=== PATIENT | male | born 1980 | race Caucasian/White ===

== ENCOUNTER → 2021-12-17 10:14 | Outpatient (BNVA) | payer OTHER, SELFPAY | PROVIDERS: PCP Family Medicine; Visit Provider Urology | DX: Z13.89 Encounter for screening for other disorder (principal) ==

== ENCOUNTER 2021-12-18 15:10 | Day surgery (SDC) | payer OTHER, MEDICAID, SELFPAY ==
[2021-12-18] VITALS (10 sets, daily range): BP systolic 136–165; BP diastolic 88–103; PULSE 86–110; RESP 16–20; TEMP 36.1–36.8; O2SAT 94–100; BMI 30.7
--- NOTE | 2021-12-18 15:36 | HO.ANESPROP2 ---
HPI - Anesthesia Eval Consult details Narrative: 41 M for Orchiectomy Current Smoker PMFSH Active Problems Active Problems: All Active Problems (Updated 12/17/21 @ 12:21 by Nahid Davidson MD) Testicular cancer (Acute) Past Medical History Medical History (Updated 12/18/21 @ 15:42 by Khushi Irvin RN) Asthma Deviated septum H/O prematurity Insomnia Other cyst of bone, left forearm Wrist fracture, left Family History Family history of problems with anesthesia: No Surgical History Surgical History (Updated 12/18/21 @ 16:01 by Khushi Irvin RN) Hx of adenoidectomy Hx of tonsillectomy History of Problems with Anesthesia: No Social History Social History Patient Tobacco Use Status: Current everyday Tobacco user Tobacco use type: Cigarette Cigarette Packs Per Day: 1 Cigarettes Per Day: 20.0 Smoked in Last 30 Days: Yes Use of substances other than those prescribed or required for medical reasons: Yes Are you DNR?: No Advance Directives: No Advance Directives Information Provided: Yes Recently lost weight without trying: No Nutrition Risks: No Nutritional Risk Meds Allergies Allergy/AdvReac Type Severity Reaction Status Date / Time codeine AdvReac Nausea and Verified 12/18/21 15:38 Vomiting Home Medications Medication Instructions Recorded Confirmed Last Taken Type oxycodone 5 mg tablet 5 mg PO tab 12/17/21 Unknown History Exam Exam Date and Time: December 18, 2021 1536 Height,Weight and Vital Signs: Height 5 ft 6 in Weight 86.183 kg Last Vital Signs Temp 98.3 F 12/18/21 15:22 Pulse 94 12/18/21 15:22 Resp 16 12/18/21 15:22 BP 136/88 12/18/21 15:22 Pulse Ox 98 12/18/21 15:22 Airway Mallampati Class: III TM Dist: >3cm Neck ROM: Full Loose/Missing/Broken Teeth: Yes (Chipped and broken teeth . Poor dentation overall . ) Heart: RRR Lungs: b/l breath sounds Assessment and Plan Assessment Anesthesia Assessment: Anesthesia Plan Discussed and Chart Reviewed Final Anesthetic Review Family History of Problems with Anesthesia: No History of Problems with Anesthesia: No NPO: Yes ASA Class: II and Emergency Final Preanesthetic Review: Meds/Allgs Chart Reviewed, Consent Obtained/Reviewed and Anes Risks/Benef Reviewed Patient Risk: High Procedure Risk: Intermediate Anesthetic Plan Anesthetic Plan: GA Disposition: Standard PACU
[2021-12-18] MEDS: Lactated Ringers 1,000 ML 80 ML IVCONT (16:00)
--- NOTE | 2021-12-18 16:18 | MHC.SHP ---
Pre-Procedural Eval Section A Date of Service: 12/18/21 The patient is an INPATIENT: No Changes since office visit: No Cold of Flu in the past 2 weeks, No New Medical Problems, No Changes in Medication and No Patient answered all questions The History & Physical has been completed within 30 days and I have reviewed it.: Yes Section B Chief Complaint: malignant neoplasm Details of Present Illness: testicular neoplasm, urgent radical orchiectomy Allergies: Allergies Allergy/AdvReac Type Severity Reaction Status Date / Time codeine AdvReac Nausea and Verified 12/18/21 15:38 Vomiting Plan Diagnosis/Plan: Unchanged ( urgent right radical orchiectomy) I have reviewed the history and physical and performed a pertinent physical examination on my patient. No changes have occurred unless specified.
--- NOTE | 2021-12-18 17:23 | P.OP_ITS ---
Operative Note Operative Note Date of Service: 12/18/21 Narrative: PreOperative Diagnosis: right testicular cancer Post Operative Diagnosis: right testicular cancer Procedure: right radical orchiectomy Surgeon: Dr Nahid Davidson Anesthesia: general Indications for procedure: testicular mass associated with retroperitoneal lymphadenopathy found on visit to the emergency room last week. Ultrasound consistent with testicular cancer right testicle. Baseline tumor marker labs have been performed. Presents today for right radical orchiectomy. Questions have been answered. He understands this is part of a staging procedure for diagnostic purposes and will require chemotherapy and surveillance imaging. Procedure: After informed consent was verified the patient was brought to the operating room and placed in a supine position. Anesthesia was administered per protocol. The right inguinal area was shaved and he was prepped and draped in sterile fashion. Safety pause time-out was performed. Antibiotics being given. The inguinal canal was palpated through the scrotum and an incision marked. Local anesthetic infiltrated for postoperative pain management. Skin incision approximately an inch and half was made in the subinguinal position. Dissection was then taken down through the fat onto the fascial layer. The inguinal cord was identified and elevated in isolated with a [place] drain to prevent retrograde tumor movement. The testicle was then delivered through the incision. Testicle was freed using Bovie dissection from its gubenacular attachment. The testicle was elevated and the cord was dissected free. The overlying superficial inguinal fascia was divided to allow full cord dissection. The cord was then divided creating a vascular packet and the vas deferens packet. Each packet was then clamped proximal. the testicle was removed with sharp dissection. The vas deferens packet was tied using 2-0 Vicryl tie and released. The vascular packet was controlled with a stick tie using 2-0 silk. A long tail was left so that the cord can be identified from the abdominal position if required at a later date. The overlying superficial fascia was closed using a running 2-0 Vicryl suture. The deep tissue was reapproximated with interrupted 2-0 Vicryl. Prior to the deep tissue Vicryl closure the scrotal sac was irrigated with normal saline. Skin was closed with a running 4-0 Monocryl suture. Excess local anesthetic was injected into the wound and deep dissection space. He tolerated the procedure well and was extubated in operating room transferred in stable condition to the recovery area. Pathology: Testicle Drains: []
[2021-12-18] MEDS: HYDROmorphone HCl 0.5 MG/0.5 ML SYRINGE 0.25 MG IVPUSH ×2 (17:58→18:08)
[2021-12-18] MEDS: oxyCODONE HCl Immed Release 5 MG TABLET PO (18:05)
--- NOTE | 2021-12-18 18:47 | HO.POSTANES ---
Post Anesthesia Evaluation Post Anesthesia Evaluation Vital Signs: Vital Signs Temp Pulse Resp BP Pulse Ox 12/18/21 18:30 97.8 F 87 20 139/90 H 96 12/18/21 18:15 86 18 153/96 H 100 12/18/21 18:08 20 12/18/21 18:00 89 18 146/98 H 100 12/18/21 17:58 20 12/18/21 17:45 95 18 149/103 H 99 12/18/21 17:40 100 16 150/93 H 100 12/18/21 17:35 95 16 155/89 H 94 12/18/21 17:30 97.0 F 110 H 16 165/96 H 96 12/18/21 15:22 98.3 F 94 16 136/88 98 Anesthesia: General LMA Mental Status: Awake Pain Control: Satisfactory Nausea/Vomiting: None Hydration: Adequate Anesthesia-Related Issues: No Anes. Related Issues
--- NOTE | 2021-12-18 18:49 | PC.NURSE ---
PATIENT REPORTS PAIN 5/10 RIGHT GROIN DRESSING C/D/I. NEW ICE PACKS PLACED I AM READY TO GO HOME REVIEW DISCHARGE INSTRUCTIONS. PATIENT ASSISTED TO DRESS.
== END 2021-12-18 18:50 | disposition home or self-care (01) ==
PROVIDERS: PCP Family Medicine; Visit Provider Urology
PROC: (CPT 54530; principal; 2021-12-18 16:00)
DX: C62.91 Malignant neoplasm of right testis, unspecified whether descended or undescended (principal); F17.210 Nicotine dependence, cigarettes, uncomplicated; J45.909 Unspecified asthma, uncomplicated; Z88.8 Allergy status to other drugs, medicaments and biological substances
CPT/HCPCS: 54530; 88309; J0131; J0690; J1100; J1170; J1200; J2250; J2405; J3010

== ENCOUNTER → 2022-01-17 13:38 | Outpatient (BNVA) | payer OTHER, MEDICAID, SELFPAY | PROVIDERS: PCP Family Medicine; Visit Provider Urology | DX: Z13.89 Encounter for screening for other disorder (principal) ==